=== PATIENT | male | born 1965 | race Caucasian/White ===

== ENCOUNTER 2022-05-03 12:10 | Observation (INO) ==
[2022-05-03 15:16] LABS: Basophils # 0.1 K/mcL (0.0-0.2); Basophils % 0.9 %; Eosinophils # 0.2 K/mcL (0.0-0.6); Eosinophils % 1.4 %; Hematocrit 54.8 % (37.5-50.1); Hemoglobin 18.1 g/dL (12.9-16.9); Immature Granulocytes % 0.7 % (0-4); Lymphocytes # 2.9 K/mcL (0.6-4.6); Lymphocytes % 24.4 %; Mean Corpuscular Volume 90.9 fL (83.0-100.0); Mean Platelet Volume 10.6 fL (9.4-12.4); Monocytes # 0.8 K/mcL (0.0-1.3); Monocytes % 6.6 %; Neutrophils # 7.8 K/mcL (1.6-8.9); Platelet Count 260 K/mcL (140-400); Red Blood Count 6.03 M/mcL (4.19-5.50); Red Cell Distribution Width 13.1 % (11.5-14.5); White Blood Count 11.8 K/mcL (4.3-11.1)
[2022-05-03 15:46] LABS: BUN/Creatinine Ratio 14 (6-26); Blood Urea Nitrogen 14 mg/dL (6-20); Calcium 9.6 mg/dL (8.6-10.3); Carbon Dioxide 25 mEq/L (23-29); Chloride 98 mEq/L (98-107); Glucose 214 mg/dL (70-105); Osmolality,Calculated 285 (280-300); Potassium 3.9 mEq/L (3.5-5.1); Sodium 134 mEq/L (136-145); Troponin I < 0.03 ng/mL (< 0.04); eGFR For African Americans > 60 (> 60); eGFR For Non-African Americans > 60 (> 60)
[2022-05-03] MEDS ORDERED: Aspirin 325 MG TABLET PO ONE (17:12)
[2022-05-03 17:13] LABS: Influenza A PCR Negative (Negative); Influenza B PCR Negative (Negative); Resp. Syncytial Virus PCR Negative (Negative)
[2022-05-03] MEDS ORDERED: Nicotine 14 MG PATCH.TD24 TD ONE (17:20)
[2022-05-03 17:37] LABS: SARS-CoV-2 by PCR (In House) Negative (Negative)
[2022-05-03] MEDS ORDERED: *HR* Metoprolol 5 MG/5 ML VIAL IVP PRN (18:18)
[2022-05-03] MEDS ORDERED: Naloxone 0.4 MG/ML INJ IVP PRN (18:19)
[2022-05-03] MEDS ORDERED: Acetaminophen 325 MG TABLET PO PRN (18:19)
[2022-05-03] MEDS ORDERED: Melatonin 3 MG TABLET PO PRN (18:19)
[2022-05-03] MEDS ORDERED: Perflutren Lipid Microsphere 1.3 ML in 0.9 % Sodium Chloride 8.7 ML IVP PRN (18:21)
[2022-05-03 20:58] LABS: Estimated Average Glucose 134 mg/dl; Hemoglobin A1C 6.3 %
[2022-05-03] MEDS: *HR* Heparin 5,000 UNIT/ML VIAL SQ SCH (22:08)
[2022-05-03] MEDS: Nicotine 14 MG PATCH.TD24 TD SCH (23:15)
[2022-05-04] MEDS: *HR* Heparin 5,000 UNIT/ML VIAL SQ SCH (05:49)
[2022-05-04 07:08] LABS: Basophils # 0.1 K/mcL (0.0-0.2); Eosinophils # 0.2 K/mcL (0.0-0.6); Eosinophils % 2.2 %; Hematocrit 51.6 % (37.5-50.1); Immature Granulocytes % 0.5 % (0-4); Lymphocytes % 28.3 %; Mean Corpuscular HGB Conc 32.9 g/dL (31.6-35.5); Mean Corpuscular Hemoglobin 29.9 pg (28.0-33.3); Mean Corpuscular Volume 90.8 fL (83.0-100.0); Mean Platelet Volume 10.5 fL (9.4-12.4); Monocytes # 0.8 K/mcL (0.0-1.3); Monocytes % 7.6 %; Neutrophils # 6.5 K/mcL (1.6-8.9); Platelet Count 257 K/mcL (140-400); Red Blood Count 5.68 M/mcL (4.19-5.50); Segmented Neutrophils % 60.4 %; White Blood Count 10.7 K/mcL (4.3-11.1)
[2022-05-04 07:09] LABS: Alanine Aminotransferase 37 Units/L (7-52); Albumin 4.1 g/dL (3.5-5.7); Albumin/Globulin Ratio 1.4 (1.1-2.2); Alkaline Phosphatase 92 Units/L (34-104); Aspartate Amino Transferase 24 Units/L (13-39); BUN/Creatinine Ratio 18 (6-26); Bilirubin,Total 0.3 mg/dL (0.3-1.0); Blood Urea Nitrogen 16 mg/dL (6-20); Calcium 9.2 mg/dL (8.6-10.3); Carbon Dioxide 24 mEq/L (23-29); Chloride 103 mEq/L (98-107); Chol/HDL Ratio 4.2 (0-4.9); Cholesterol 185 mg/dL (< 200); Globulin 2.9 g/dL (2.4-3.5); Glucose 143 mg/dL (70-105); HDL Cholesterol 44 mg/dL (40-59); LDL Cholesterol,Calculated 104 mg/dL (< 100); Osmolality,Calculated 286 (280-300); Potassium 4.2 mEq/L (3.5-5.1); Sodium 136 mEq/L (136-145); Triglycerides 187 mg/dL (< 150); eGFR For African Americans > 60 (> 60); eGFR For Non-African Americans > 60 (> 60)
[2022-05-04] MEDS ORDERED: Aspirin 81 MG TAB.CHEW PO SCH (09:00)
[2022-05-04] MEDS ORDERED: amLODIPine 5 MG TABLET PO SCH (09:00)
[2022-05-04] MEDS ORDERED: Iopamidol - 370 500 ML MLS IVP ONE (09:03)
[2022-05-04] MEDS ORDERED: amLODIPine 5 MG TABLET PO ONE (09:37)
[2022-05-04] MEDS: Nicotine 14 MG PATCH.TD24 TD SCH (10:46)
[2022-05-04 11:21] VITALS: BP 159/74; PULSE 58; TEMP 97.9; O2SAT 92
[2022-05-05] MEDS ORDERED: amLODIPine 5 MG TABLET PO SCH (09:00)
== END 2022-05-04 15:15 | disposition home or self-care (01) ==
LOC: 3BNU 12:10 → EMEROOARM 12:10 → 3BNU 19:50
PROVIDERS: ADMIT Student in an Organized Health Care Education/Training Program; ATTEND Student in an Organized Health Care Education/Training Program